=== PATIENT | female | born 1955 | race Caucasian/White ===

== ENCOUNTER 2017-08-23 08:36 | Day surgery (SDC) | payer OTHER ==
[2017-08-22 14:10] VITALS: BMI 36.9
[2017-08-23 09:17] VITALS: TEMP 98.4
[2017-08-23 11:18] VITALS: BP 119/67; PULSE 71
--- NOTE | 2017-08-24 16:45 | PATH ---
Surgical Pathology Report Patient Name: JENARO JACK [facility], [place]. Rec. #: [id number] /Age/Gender: 1955 (Age: 62) / F Account: [id number] Location: [facility]-ENDOSCOPY Taken: 08/23/2017 Received: 08/23/2017 Reported: 08/24/2017 Physicians: Tejas Stearns M.D. Specimen(s) Received A: BX OF FUNDUS B: BX DUODENUM C: BX ANTRUM D: PROXIMAL TRANSVERSE COLON POLYP Clinical History Preoperative diagnosis: Heart burn, rule out Rbight's, family history of colon cancer, personal history of ?? adenoma Postoperative diagnosis: Erosive gastritis, duodenitis, duodenal ulcer, colon polyp, diverticulosis Final Diagnosis A. STOMACH, FUNDUS, BIOPSY: GASTRIC FUNDIC MUCOSA WITH ULCERATION. NO CARCINOMA IDENTIFIED. IMMUNOSTAIN FOR H. PYLORI IS NEGATIVE. B. DUODENUM, SECOND PORTION AND BULB, BIOPSY: DUODENAL MUCOSA WITH NO PATHOLOGIC CHANGES. NO HISTOLOGIC EVIDENCE OF GLUTEN SENSITIVE ENTEROPATHY (CELIAC SPRUE) IDENTIFIED. C. STOMACH, ANTRUM, BIOPSY: GASTRIC ANTRAL MUCOSA WITH REACTIVE GASTROPATHY. IMMUNOSTAIN FOR H. PYLORI IS NEGATIVE. D. COLON, PROXIMAL TRANSVERSE, BIOPSY: HYPERPLASTIC POLYP. Electronically Signed David Burgos M.D. Gross Description A. Received in formalin, labeled "biopsy fundal ulcer" are 2 duque, irregular portions of soft tissue averaging 0.2 cm. in greatest dimension. The specimens are submitted in toto in one cassette. B. Received in formalin, labeled "biopsy second portion of duodenum and duodenal bulb" are 4 duque, irregular portions of soft tissue ranging from 0.1-0.4 cm. in greatest dimension. The specimens are submitted in toto in one cassette. C. Received in formalin, labeled "biopsy antrum" are 4 duque, irregular portions of soft tissue ranging from 0.1-0.4 cm. in greatest dimension. The specimens are submitted in toto in one cassette. D. Received in formalin, labeled "proximal transverse colon polyp" is a duque, irregular portion of soft tissue measuring 0.1 cm. in greatest dimension. The specimen is submitted in toto in one cassette. /08/23/2017 saudi08/23/2017
== END 2017-08-23 11:18 | disposition home or self-care (01) ==
LOC: JASU-ENDO 08:36
PROVIDERS: ATTEND Internal Medicine Gastroenterology
PROC: 0DB98ZX Excision of Duodenum, Via Natural or Artificial Opening Endoscopic, Diagnostic (ICD-10-PCS; 2017-08-23)
PROC: 0DB68ZX Excision of Stomach, Via Natural or Artificial Opening Endoscopic, Diagnostic (ICD-10-PCS; 2017-08-23)
PROC: 0DBL8ZX Excision of Transverse Colon, Via Natural or Artificial Opening Endoscopic, Diagnostic (ICD-10-PCS; principal; 2017-08-23 10:00)
DX: Z12.11 Encounter for screening for malignant neoplasm of colon (principal); Z86.010 Personal history of colon polyps; Z80.0 Family history of malignant neoplasm of digestive organs; K57.30 Diverticulosis of large intestine without perforation or abscess without bleeding; D12.3 Benign neoplasm of transverse colon; K29.70 Gastritis, unspecified, without bleeding; K44.9 Diaphragmatic hernia without obstruction or gangrene; K26.9 Duodenal ulcer, unspecified as acute or chronic, without hemorrhage or perforation; K29.80 Duodenitis without bleeding
CPT/HCPCS: 88305-TC; 88342-TC

== ENCOUNTER 2021-06-16 04:43 | Day surgery (SDC) | payer OTHER ==
[2021-06-09 16:15] VITALS: BMI 35.6
[2021-06-16 09:34] VITALS: TEMP 97.5
[2021-06-16 10:31] VITALS: BP 120/73; PULSE 71
== END 2021-06-16 10:31 | disposition home or self-care (01) ==
LOC: JASU-ENDO 04:43
PROVIDERS: ATTEND Internal Medicine Gastroenterology
PROC: 0DBL8ZX Excision of Transverse Colon, Via Natural or Artificial Opening Endoscopic, Diagnostic (ICD-10-PCS; 2021-06-16)
PROC: 0DBK8ZX Excision of Ascending Colon, Via Natural or Artificial Opening Endoscopic, Diagnostic (ICD-10-PCS; principal; 2021-06-16 09:00)
DX: Z12.11 Encounter for screening for malignant neoplasm of colon (principal); Z86.010 Personal history of colon polyps; Z80.0 Family history of malignant neoplasm of digestive organs; D12.2 Benign neoplasm of ascending colon; D12.3 Benign neoplasm of transverse colon; K57.30 Diverticulosis of large intestine without perforation or abscess without bleeding